=== PATIENT | female | born 1995 | race Caucasian/White ===

== ENCOUNTER 2019-01-17 14:00 | Outpatient (RCR) | payer SELFPAY ==
--- NOTE | 2018-12-02 08:16 | HP.OTEVAL_ITS ---
Patient's Visit Information ANDREW VELAZQUEZ is a 23 year old F, referred to Occupational Therapy by Vinicio Piña MD, with a diagnosis of injury of flexor tendoin of left hand. Date of Evaluation: 12/01/18 Occupational Therapist: Francoise Ruiz, STEVIER/Sarwat, CHT - Subjective Subjective: This 23 year old was seen for initial OT eval following a left flexor tendon laceration. Pt states she fell onto a tin piece cutting her hand on Nov.21, sx on nov 24WednesdayNovember 28 returned for orthosis fabrication- one week s/p at this time orders call for RBT flexor tendon with additional Place and hold. pt arrives and demo understanding of the exercies she was given at the hand center. Pt is hopeful she can have her splint off for her vaction to [place]- Therapist advised would make that call as this would be early removal of a orthosis for protection and healing of tendon. - ROM ROM Comments: digits Right WNL-. passive flex ROM of left IF MCP 75 PIP 85 DIP 45. pt ext to splint limits. incision clean and dry. pt demo understanding of her ex well - Strength Strength Comments: will test later date - Sensation Sensation Comments: denies sensation loss- - Goals Goal:100% adherence to protocol: Yes Goal:Daily scar massage when approriate: Yes Goal:ROM equal to unaffected hand: Yes Goal:Occupational Therapy Assistant/Pinch strength at least 75% of unaffected hand: Yes Comment: at 12 weeks s/p Goal:PIP Circumferences equal to unaffected hand: Yes Goal:Full use of affected hand in daily activities including: Yes Goal:Decrease scar hypersensitivity: Yes - Rehabilitation General Assessment: S/P 1 week flexor tendon repair. Using RBT flexor tendon PROM of digits, edema reduction techniques additional Pace and hold. Therapist will follow the [facility] early active motion protocol. Pt currently demo with newly healing repair of flexor tendon and a need for skilled OT services 1x week for 8 weeks. PT demo understanding of orthosis use. pt agree to POC. Rehabilitation Potential: Good - Anticipated Interventions Anticipated Interventions: Early Active Motion, Edema Control, Scar Care, Desensitization, Sensory Retraining, Modalities, Orthoses, Home Program - Visit Plan Frequency: Every Other Week Duration: 3 Months TEXT: Thank you for the opportunity to evaluate your patient. For Medicare and Medicare HMO plans, please review the plan of care and approve it. It will need to be FAXED BACK to us at [phone] for Medicare purposes. Please let me know if there are questions or concerns regarding this plan of care. Physician Signature:____ Date:
--- NOTE | 2019-04-26 16:09 | HP.OT.NRP ---
HP - Discharge Summary - Patient Information ANDREW VELAZQUEZ was seen in my office for initial evaluation on 12/01/18. The following Plan of Care was established for this patient: Initial Frequency: Every Other Week Initial Duration: 3 Months Plan: reverse blocking. night paddle splint. AROM - Anticipated Interventions Anticipated Interventions: Early Active Motion, Edema Control, Scar Care, Desensitization, Sensory Retraining, Modalities, Orthoses, Home Program This patient was last seen in our office 01/17/19. Pertinent comments regarding their Occupational therapy will appear below: PT was seen for 5 OT visits following a flexor tendon repair- pt demo at last apt with scar adhesions limiting finger ROM. Pt has not scheduled any further apts and due to time lapse in therapy services is D/C at this time. At this point I will be discontinuing this patient from occupational therapy. I would be happy to see this patient again in the future if found appropriate by the physician. Thank you! Francoise Ruiz, OTR/L, CHT
== END 2019-01-17 19:00 | disposition home or self-care (01) ==
LOC: OT 14:00
PROVIDERS: Family Provider Family Medicine; PCP Family Medicine; Referring Provider Orthopaedic Surgery; Visit Provider Orthopaedic Surgery
DX: S66.802D Unspecified injury of other specified muscles, fascia and tendons at wrist and hand level, left hand, subsequent encounter (principal)
CPT/HCPCS: 97110; 97140; 97166; 97530